=== PATIENT | male | born 1940 | race Caucasian/White ===

== ENCOUNTER 2021-02-03 06:07 | Emergency (ER) | payer MEDICARE, OTHER ==
[~2021-02-03] VITALS: Ht 193 cm; Wt 125.0 kg
[~2021-02-03 06:07] MED LIST: ASPI81TA50 PO; BUPR100T7 PO; CHOL10003 PO; FURO40TA4 PO; INSU500I SQ; LEVO100T5 PO; LIRA0.6P2 SQ; LISI-130 PO; OMEP20TA8 PO; TAMS0.4C2 PO
--- NOTE | 2021-02-03 07:12 | ED.ADGEN ---
Past Medical History Past Medical History: CAD, Diabetes-Type II Additional Past Medical Histor: PT IS POOR HISTORIAN Past Surgical History: Other Additional Past Surgical Histo: kidney surgery as child Smoking Status: Never Smoker Alcohol Use: None Drug Use: None General Adult EDM: Chief Complaint: ABDOMINAL PAIN HPI: HPI: Patient is a 80-year-old male who arrives via EMS complaining of the development of left-sided chest pain. Patient reports this pain woke him from sleep. Patient describes his pain is heaviness and which does not radiate. Patient states despite having this pain he does not have any shortness of air, fever or cough. He further denies any history of coronary artery disease. Additionally states he was feeling fine before he went to bed. He is awake, alert and nontoxic-appearing Review of Systems: Review of Systems: Constitutional: Denies fever or chills. [] Eyes: Denies change in visual acuity. [] HENT: Denies nasal congestion or sore throat. [] Respiratory: Denies cough or shortness of breath. [] Cardiovascular: Reports chest pain. Denies edema. [] GI: Denies abdominal pain, nausea, vomiting, bloody stools or diarrhea. [] : Denies dysuria. [] Musculoskeletal: Denies back pain or joint pain. [] Integument: Denies rash. [] Neurologic: Denies headache, focal weakness or sensory changes. [] Endocrine: Denies polyuria or polydipsia. [] Lymphatic: Denies swollen glands. [] Psychiatric: Denies depression or anxiety. [] Current Medications: Current Medications Medications (Trade) Dose Ordered Sig/[facility] Start Time Stop Time Status Last Admin Dose Admin Aspirin (Aspirin Chewable) 324 mg 1X ONCE 02/03/21 07:15 02/03/21 07:16 DC 02/03/21 07:30 324 MG Allergies: Allergies: Allergies Coded Allergies Type Severity Reaction Last Updated Verified No Known Drug Allergies 02/03/21 No Physical Exam: PE: Constitutional: Well developed, well nourished, no acute distress, non-toxic appearance. [] HENT: Normocephalic, atraumatic, bilateral external ears normal, oropharynx moist, no oral exudates, nose normal. [] Eyes: PERRLA, EOMI, conjunctiva normal, no discharge. [] Neck: Normal range of motion, no tenderness, supple, no stridor. [] Cardiovascular:Heart rate regular rhythm, no murmur [] Lungs & Thorax: Bilateral breath sounds clear to auscultation [] Abdomen: Bowel sounds normal, soft, no tenderness, no masses, no pulsatile masses. [] Skin: Warm, dry, no erythema, no rash. [] Back: No tenderness, no CVA tenderness. [] Extremities: No tenderness, no cyanosis, no clubbing, ROM intact, no edema. [] Neurologic: Alert and oriented X 3, normal motor function, normal sensory func tion, no focal deficits noted. [] Psychologic: Affect normal, judgement normal, mood normal. [] Current Patient Data: Labs: Laboratory Tests Test 02/03/21 07:20 White Blood Count 5.2 x10^3/uL (4.0-11.0) Red Blood Count 2.84 x10^6/uL (4.30-5.70) L Hemoglobin 8.7 g/dL (13.0-17.5) L Hematocrit 25.7 % (39.0-53.0) L Mean Corpuscular Volume 91 fL (79-100) Mean Corpuscular Hemoglobin 31 pg (25-35) Mean Corpuscular Hemoglobin Concent 34 g/dL (31-37) Red Cell Distribution Width 13.2 % (11.5-14.5) Platelet Count 129 x10^3/uL (140-400) L Neutrophils (%) (Auto) 80 % (31-73) H Lymphocytes (%) (Auto) 13 % (24-48) L Monocytes (%) (Auto) 5 % (0-9) Eosinophils (%) (Auto) 2 % (0-3) Basophils (%) (Auto) 0 % (0-3) Neutrophils # (Auto) 4.2 x10^3/uL (1.8-7.7) Lymphocytes # (Auto) 0.7 x10^3/uL (1.0-4.8) L Monocytes # (Auto) 0.3 x10^3/uL (0.0-1.1) Eosinophils # (Auto) 0.1 x10^3/uL (0.0-0.7) Basophils # (Auto) 0.0 x10^3/uL (0.0-0.2) Sodium Level 126 mmol/L (136-145) L Potassium Level 3.4 mmol/L (3.5-5.1) L Chloride Level 90 mmol/L (98-107) L Carbon Dioxide Level 27 mmol/L (21-32) Anion Gap 9 (6-14) Blood Urea Nitrogen 30 mg/dL (8-26) H Creatinine 2.5 mg/dL (0.7-1.3) H Estimated GFR (Cockcroft-Gault) 25.1 BUN/Creatinine Ratio 12 (6-20) Glucose Level 231 mg/dL (70-99) H Calcium Level 7.9 mg/dL (8.5-10.1) L Total Bilirubin 0.4 mg/dL (0.2-1.0) Aspartate Amino Transferase (AST) 8 U/L (15-37) L Alanine Aminotransferase (ALT) 11 U/L (16-63) L Alkaline Phosphatase 56 U/L (46-116) Total Protein 6.0 g/dL (6.4-8.2) L Albumin 2.2 g/dL (3.4-5.0) L Albumin/Globulin Ratio 0.6 (1.0-1.7) L Lipase 88 U/L (73-393) Laboratory Tests 02/03/21 07:20 Laboratory Tests 02/03/21 07:20 Vital Signs: Vital Signs Date Time Temp Pulse Resp B/P (MAP) Pulse Ox O2 Delivery O2 Flow Rate FiO2 02/03/21 06:14 98.2 73 18 138/70 (92) 95 Room Air 98.2 EKG: EKG: EKG was obtained at 7:20 AM and revealed a normal sinus rhythm with ventricular rate 65 bpm. There are premature atrial complexes present with a prolonged QT interval. There are no acute ST/T wave changes to denote ischemia otherwise. Heart Score: C/O Chest Pain: Yes HEART Score for Chest Pain: HEART Score for Chest Pain Response (Comments) Value History Slighlty/Non-Suspicious 0 ECG Nonspecific Repolarizatio 1 Age > 65 2 Risk Factors 1 or 2 Risk Factors 1 Troponin < Normal Limit 0 Total 4 Risk Factors: Risk Factors: DM, Current or recent (<one month) smoker, HTN, HLP, family history of CAD, obesity. Risk Scores: Score 0 - 3: 2.5% MACE over next 6 weeks - Discharge Home Score 4 - 6: 20.3% MACE over next 6 weeks - Admit for Clinical Observation Score 7 - 10: 72.7% MACE over next 6 weeks - Early Invasive Strategies Radiology/Procedures: Radiology/Procedures: [][facility] [address] [place] [address] IMAGING REPORT Signed PATIENT: YESSI BASS ACCOUNT: [id number] : 1940 LOCATION: ER AGE: 80 SEX: M EXAM STATUS: PRE ER ORD. PHYSICIAN: ENEIDA NICHOLAS DO REASON: pain PROCEDURE: PORTABLE CHEST 1V Single view chest dated 02/03/2021 7:53 AM: COMPARISON: 03/10/2016 Clinical Indication: Pain. Findings: Single upright portable exam of the chest was performed. Heart size mildly enlarged, stable. Patient is status post median sternotomy. There is some patchy increased density at both lung bases with retrocardiac consolidation on the left. Blunting left costophrenic sulcus. No pneumothorax. IMPRESSION: 1. Patchy bibasilar airspace disease with consolidation at the left lung base. Scattered represent atelectasis or developing pneumonia. 2. Small to moderate sized left pleural effusion. Electronically signed by: Flaco Mcrae MD (02/03/2021 7:54 AM) [id number] DICTATED and SIGNED BY: FLACO MCRAE MD DATE: 02/03/21 [id number] 0 Course & Med Decision Making: Course & Med Decision Making During the course of the patient's evaluation he reportedly asked nursing staff her sleeping pill. This was declined stating that he may have 1 upon being admitted. The patient stated he did not want to be admitted and wanted to leave AGAINST MEDICAL ADVICE. I encouraged the patient to stay and he replied by stating he had things to do. I did tell him that he could be putting his own life at risk given his history of coronary artery disease with his chief complaint of chest pain. I stated at this time I do not believe he was having a heart attack that required acute coronary intervention however I do believe he warrants admission for further study into an occult injury. The patient stated he would leave regardless. The patient would be discharged AGAINST MEDICAL ADVICE and was encouraged to return to the emergency department at any time for any reason. I learned after the patient departed, that he does have findings consistent with pneumonia on chest x-ray. Despite this he denied any history of shortness of air nor did he have any outward signs of breathing difficulty. I was unable to communicate this to the patient before his departure. [] Loron Disclaimer: Draggris Disclaimer: This electronic medical record was generated, in whole or in part, using a voice recognition dictation system. Departure Departure Impression: Primary Impression: Chest pain Additional Impressions: Left against medical advice History of coronary artery disease Person under investigation for COVID-19 Pneumonia Disposition: 07 LEFT AGAINST MEDICAL ADVICE Condition: STABLE Referrals: UNKNOWN PCP NAME (PCP) Problem Qualifiers ENEIDA NICHOLAS DO Feb 03, 2021 07:12
[2021-02-03] MEDS ORDERED: ASPIRIN CHEWABLE 81 MG TABLET. PO ONE (07:15)
--- NOTE | 2021-02-03 07:34 | EKG ---
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
[2021-02-03 07:39] LABS: BASO % 0 % (0-3); EOS # 0.1 x10^3/uL (0.0-0.7); EOS % 2 % (0-3); HEMATOCRIT 25.7 % (39.0-53.0); HEMOGLOBIN 8.7 g/dL (13.0-17.5); LYMPH # 0.7 x10^3/uL (1.0-4.8); LYMPH % 13 % (24-48); MEAN CORPUSCULAR HEMOGLOBIN 31 pg (25-35); MEAN CORPUSCULAR HGB CONC 34 g/dL (31-37); MEAN CORPUSCULAR VOLUME 91 fL (79-100); MONO # 0.3 x10^3/uL (0.0-1.1); MONO % 5 % (0-9); NEUT # 4.2 x10^3/uL (1.8-7.7); NEUT % 80 % (31-73); PLATELET COUNT 129 x10^3/uL (140-400); RED BLOOD COUNT 2.84 x10^6/uL (4.30-5.70); RED CELL DISTRIBUTION WIDTH 13.2 % (11.5-14.5); WHITE BLOOD COUNT 5.2 x10^3/uL (4.0-11.0)
[2021-02-03 07:56] LABS: CALCIUM 7.9 mg/dL (8.5-10.1); CREATININE 2.5 mg/dL (0.7-1.3); GFR 25.1; POTASSIUM 3.4 mmol/L (3.5-5.1)
--- NOTE | 2021-02-03 07:56 | RAD ---
Single view chest dated 02/03/2021 7:53 AM: COMPARISON: 03/10/2016 Clinical Indication: Pain. Findings: Single upright portable exam of the chest was performed. Heart size mildly enlarged, stable. Patient is status post median sternotomy. There is some patchy increased density at both lung bases with retr ocardiac consolidation on the left. Blunting left costophrenic sulcus. No pneumothorax. IMPRESSION: 1. Patchy bibasilar airspace disease with consolidation at the left lung base. Scattered represent at electasis or developing pneumonia. 2. Small to moderate sized left pleural effusion. Electronically signed by: Flaco Mcrae MD (02/03/2021 7:54 AM) [id number]
[2021-02-03 08:02] LABS: ALBUMIN 2.2 g/dL (3.4-5.0); ALBUMIN/GLOBULIN RATIO 0.6 (1.0-1.7); TOTAL BILIRUBIN 0.4 mg/dL (0.2-1.0)
[2021-02-03 08:04] VITALS: BP 137/81
--- NOTE | 2021-02-03 09:47 | EKG ---
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
== END 2021-02-03 08:05 | disposition left against medical advice (07) ==
LOC: ER 06:07
DX: J18.9 Pneumonia, unspecified organism (principal); R07.89 Other chest pain; I25.10 Atherosclerotic heart disease of native coronary artery without angina pectoris; E11.9 Type 2 diabetes mellitus without complications; Z20.822 Contact with and (suspected) exposure to COVID-19
CPT/HCPCS: 36415; 71045; 80053; 83690; 83880; 84484; 85025; 93005; 99285-25

== ENCOUNTER 2021-02-03 08:31 | Emergency (ER) | payer MEDICARE, OTHER ==
[~2021-02-03] VITALS: Ht 180.3 cm; Wt 85.0 kg
--- NOTE | 2021-02-03 08:45 | ED.ADGEN ---
Past Medical History Past Medical History: CAD, Diabetes-Type II Additional Past Medical Histor: PT IS POOR HISTORIAN Past Surgical History: Other Additional Past Surgical Histo: kidney surgery as child Smoking Status: Never Smoker Alcohol Use: None Drug Use: None General Adult EDM: Chief Complaint: FLU SYMPTOM HPI: HPI: Patient is a 80-year-old male who returns to the emergency department after leaving AGAINST MEDICAL ADVICE only minutes ago. Between the time the patient departed in his return it was learned the patient had pneumonia. Patient reports he has had a productive cough during this time which she did not reveal in his initial visit. The patient does report that in addition to having the left-sided chest pain he has been short of air as well. He does report that he has had the Covid vaccines but he is unable to tell me when this occurred. He is awake, alert and uncomfortable appearing Review of Systems: Review of Systems: Constitutional: Denies fever or chills. [] Eyes: Denies change in visual acuity. [] HENT: Denies nasal congestion or sore throat. [] Respiratory: Reports shortness of air. Denies cough. [] Cardiovascular: Reports chest pain. [] GI: Denies abdominal pain, nausea, vomiting, bloody stools or diarrhea. [] : Denies dysuria. [] Musculoskeletal: Denies back pain or joint pain. [] Integument: Denies rash. [] Neurologic: Denies headache, focal weakness or sensory changes. [] Endocrine: Denies polyuria or polydipsia. [] Lymphatic: Denies swollen glands. [] Psychiatric: Denies depression or anxiety. [] Current Medications: Current Medications Medications (Trade) Dose Ordered Sig/[facility] Start Time Stop Time Status Last Admin Dose Admin Levofloxacin/ Dextrose 150 ml @ 100 mls/hr 1X ONCE 02/03/21 08:45 02/03/21 10:14 02/03/21 09:18 100 MLS/HR Ondansetron HCl (Zofran) 4 mg PRN Q8HRS PRN 02/03/21 09:30 02/04/21 09:29 Allergies: Allergies: Allergies Coded Allergies Type Severity Reaction Last Updated Verified No Known Drug Allergies 02/03/21 No Physical Exam: PE: Constitutional: Uncomfortable appearing. Well developed, well nourished, non- toxic appearance. [] HENT: Normocephalic, atraumatic, bilateral external ears normal, oropharynx moist, no oral exudates, nose normal. [] Eyes: PERRLA, EOMI, conjunctiva normal, no discharge. [] Neck: Normal range of motion, no tenderness, supple, no stridor. [] Cardiovascular:Heart rate regular rhythm, no murmur [] Lungs & Thorax: Bilateral breath sounds clear to auscultation [] Abdomen: Bowel sounds normal, soft, no tenderness, no masses, no pulsatile m asses. [] Skin: Warm, dry, no erythema, no rash. [] Back: No tenderness, no CVA tenderness. [] Extremities: No tenderness, no cyanosis, no clubbing, ROM intact, no edema. [] Neurologic: Alert and oriented X 3, normal motor function, normal sensory function, no focal deficits noted. [] Psychologic: Affect normal, judgement normal, mood normal. [] Current Patient Data: Vital Signs: Vital Signs Date Time Temp Pulse Resp B/P (MAP) Pulse Ox O2 Delivery O2 Flow Rate FiO2 02/03/21 08:44 97.9 105 22 143/80 (101) 98 Room Air 97.9 EKG: EKG: [] EKG was obtained at 9:27 AM. The EKG obtained is a very poor quality. There do appear to be flutter waves present with a ventricular rate of 60 bpm. There is left axis deviation with T wave inversion in the high lateral leads without any obvious evidence of a STEMI. Heart Score: C/O Chest Pain: Yes HEART Score for Chest Pain: HEART Score for Chest Pain Response (Comments) Value History Moderately Suspicious 1 Age > 65 2 Risk Factors >3 Risk Factors or Hx CAD 2 Total 5 Risk Factors: Risk Factors: DM, Current or recent (<one month) smoker, HTN, HLP, family history of CAD, obesity. Risk Scores: Score 0 - 3: 2.5% MACE over next 6 weeks - Discharge Home Score 4 - 6: 20.3% MACE over next 6 weeks - Admit for Clinical Observation Score 7 - 10: 72.7% MACE over next 6 weeks - Early Invasive Strategies Radiology/Procedures: Radiology/Procedures: [] Course & Med Decision Making: Course & Med Decision Making Pertinent Labs and Imaging studies reviewed. (See chart for details) [] Dragon Disclaimer: Dragon Disclaimer: This electronic medical record was generated, in whole or in part, using a voice recognition dictation system. Departure Departure Impression: Primary Impression: Pneumonia Additional Impressions: Person under investigation for COVID-19 Chest pain History of coronary artery disease Hyponatremia Disposition: ADMITTED INPATIENT Admitting Physician: DELMA Condition: STABLE Referrals: UNKNOWN PCP NAME (PCP) Problem Qualifiers ENEIDA NICHOLAS DO Feb 03, 2021 08:45
[2021-02-03] MEDS ORDERED: ONDANSETRON PF 4 MG/2 ML VIAL. IVP PRN (09:30)
--- NOTE | 2021-02-03 09:47 | EKG ---
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
[2021-02-03 10:10] VITALS: BP 147/90
== END 2021-02-03 10:16 | disposition left against medical advice (07) ==
LOC: ER 08:31
DX: J18.9 Pneumonia, unspecified organism (principal); E87.1 Hypo-osmolality and hyponatremia; R07.89 Other chest pain; I25.10 Atherosclerotic heart disease of native coronary artery without angina pectoris; E11.9 Type 2 diabetes mellitus without complications; Z20.822 Contact with and (suspected) exposure to COVID-19
CPT/HCPCS: 36415; 87040; 93005; 96365; 99284; J1956